=== PATIENT | female | born 1970 | race Caucasian/White ===

== ENCOUNTER → 2024-07-20 | Day surgery (SDC) | payer OTHER ==
[2024-07-14 14:29] VITALS: BMI 36.2
[~2024-07-20] MED LIST: LIDOCAINE 1% (10MG/ML) FOR IV START INTRADERMA PRN; LIDOCAINE 1% INJ 10MG/ML (20 ML MDV) ONE; PROPOFOL 10 MG/ML 20 ML VIAL IV ONE
[2024-07-20 10:59] VITALS: RESP 16; TEMP 98
[2024-07-20] MEDS: LACTATED RINGERS 1,000 ML IV SCH (11:08)
[2024-07-20] MEDS: IV FLUID CONTINUATION 1,000 ML IV ONE (11:08)
--- NOTE | 2024-07-20 12:36 | P.PCN ---
Date of Procedure: 07/20/24 Procedure(s) Performed: BRIEF HISTORY: Patient is a 53-year-old pleasant white female scheduled for an elective colonoscopy as a part of pain for colon cancer. She has longstanding history of ulcerative colitis diagnosed in 2012. PROCEDURE PERFORMED: Colonoscopy with random biopsies. PREOPERATIVE DIAGNOSIS: Screening for colon cancer/longstanding history of ulcerative colitis. IV sedation per Anesthesia. PROCEDURE: After informed consent was obtained, the patient, was brought into the endoscopy unit. IV sedation was administered by Anesthesia under continuous monitoring. Digital rectal examination was normal. Initially the Olympus CF-160 flexible video colonoscope was then inserted in the rectum, gradually advanced into the cecum without any difficulty. Careful examination was performed as the scope was gradually being withdrawn. Ileocecal valve and the appendiceal orifice were visualized and appeared normal. Prep was excellent. Mucosa of the cecum, ascending colon, transverse colon, descending colon, sigmoid colon, and rectum appeared normal. Random biopsies were done from rectum to cecum at every 10 cm intervals to rule out dysplasia. Retroflexion was performed in the rectum and no lesions were seen. The patient tolerated the procedure well. IMPRESSION: Normal-appearing colon from rectum to cecum with no evidence of active colitis or colorectal neoplasia RECOMMENDATIONS: Findings of this examination were discussed with the patient as well as her family. She was advised to follow-up with the biopsy results. If the biopsy does not show any evidence of dysplasia, she can have repeat colonoscopy in 3 years..
[2024-07-20 12:58] VITALS: BP 133/79; PULSE 76
== END ==
LOC: ORWHC2ENDO 09:58
PROVIDERS: ATTEND Internal Medicine Gastroenterology
DX: K51.90 Ulcerative colitis, unspecified, without complications
CPT/HCPCS: 45380; 88305